=== PATIENT | female | born 1950 | race Caucasian/White ===

== ENCOUNTER → 2017-02-14 | Outpatient (CLI) | payer OTHER ==
--- NOTE | 2017-02-14 18:09 | MRI ---
MR right shoulder without contrast Indication: Right shoulder pain and stiffness. No trauma history given. Comparison: No recent prior radiographs available. Technique: Multiplanar multi sequence imaging through the right shoulder without contrast. Findings: Bone marrow signal is normal. There is type 2 acromion with mild AC joint degenerative pizano ge. No muscle belly atrophy seen. Neurovascular structures appear normal. There is trace subacromial/ subdeltoid bursitis. There is supraspinatus and infraspinatus tendinosis, with focal high signal at t he insertion of the posterior supraspinatus see coronal images 11 and 10. Focal intra substance tear the footprint likely. Minimal bursal surface fraying anteriorly at the footprint seen on coronal imag e 6, partial thickness. Subscapularis is intact. Mild subscapularis tendinosis noted. The biceps tend on is intact. There is glenohumeral degenerative change subchondral cyst seen at the superior glenoid. Cartilage lo ss over the humeral head and glenoid noted. Minimal fraying of the superior labrum noted. Impression: 1. Glenohumeral degenerative change fraying of the superior glenoid labrum with small subchondral cys ts of the superior glenoid. 2. Diffuse rotator cuff tendinosis with small footprint intra substance tear at the posterior suprasp inatus insertion, best seen on coronal image 9 and axial image 12. Mild bursal surface/partial thickn ess tearing of the anterior supraspinatus on coronal image 6 and axial image 12 noted. 3. Mild acromioclavicular degenerative changes and trace subacromial/subdeltoid bursitis. Reported By:
== END | disposition home or self-care (01) | DRG 556 ==
LOC: RAD 13:43
PROVIDERS: ATTEND Internal Medicine
DX: M25.511 Pain in right shoulder (principal); M75.101 Unspecified rotator cuff tear or rupture of right shoulder, not specified as traumatic; M75.51 Bursitis of right shoulder
CPT/HCPCS: 73221